=== PATIENT | male | born 1995 | race Caucasian/White ===

== ENCOUNTER 2016-07-10 18:03 | Emergency (ER) | payer OTHER ==
[~2016-07-10] VITALS: Ht 177.8 cm; Wt 66.2 kg
[~2016-07-10 18:03] MED LIST: CYCLOBENZAPRINE5 M2 PO; PREDNISONE20 MG PO
--- NOTE | 2016-07-10 19:55 | ED SKIN/ALLERGY COMPLAINT ---
History of Present Illness General Chief Complaint: Laceration Procedure Stated Complaint: LAC TO CHEEK Source: patient Exam Limitations: no limitations Vital Signs & Intake/Output Vital Signs & Intake/Output Vital Signs Date Time Temp Pulse Resp B/P B/P Pulse O2 O2 Flow FiO2 Mean Ox Delivery Rate 07/10 2045 98.9 70 18 139/81 99 Room Air 07/10 1811 98.9 73 18 145/89 98 Room Air Allergies Coded Allergies: poison bill extract (RASH, ITCHING, SWELLING 07/10/16) Reconcile Medications No Known Home Medications Triage Note: PRESENTS TO ED FOR EVALUATION OF FACIAL LACERATION S/P TRIPPING AND FALLING AGAINST GLASS DOOR. UNSURE OF LAST TETANUS DATE. Triage Nurses Notes Reviewed? yes HPI: This patient is a 20-year-old male who presented to the emergency department for evaluation of laceration status post fall. The patient reported that he tripped and fell into a glass door. He is up-to-date on all of his immunizations. The patient reported some mild aching pain in his right thumb, but no pain in his head or face. The patient denied any loss of consciousness or neck pain. He denied any chest pain or difficulty breathing. No precipitating factors such as dizziness, lightheadedness, nausea, or any other associated symptoms. (TAVARES SILVEIRA PA-C) Past History Travel History Traveled to [place] past 21 day No Medical History Any Pertinent Medical History? see below for history Neurological: NONE EENT: NONE Cardiovascular: NONE Respiratory: NONE Gastrointestinal: NONE Hepatic: NONE Renal: NONE Musculoskeletal: NONE Psychiatric: NONE Endocrine: NONE Blood Disorders: NONE Cancer(s): NONE PATROL INSPECTOR/Reproductive: NONE Surgical History Surgical History: non-contributory Psychosocial History What is your primary language Bahraini Tobacco Use: Never used Family History Hx Contributory? No (TAVARES SILVEIRA PA-C) Review of Systems Review of Systems Constitutional: Reports: no symptoms. EENTM: Reports: no symptoms. Respiratory: Reports: no symptoms. Cardiovascular: Reports: no symptoms. GI: Reports: no symptoms. Genitourinary: Reports: no symptoms. Musculoskeletal: Reports: see HPI. Skin: Reports: see HPI. Neurological/Psychological: Reports: no symptoms. All Other Systems: Reviewed and Negative (TAVARES SILVEIRA PA-C) Physical Exam Physical Exam General Appearance: well developed/nourished, no apparent distress, alert, awake Comments: Well-developed well-nourished person in no acute distress HEENT: Normal EENT exam, head normocephalic, no bony deformities/step-offs of the skull, moist mucous membranes PERRLA bilaterally Nose is atraumatic. Neck: Supple, no lymphadenopathy. No midline tenderness. Full range of motion Back: Normal gait Respiratory: No respiratory distress. Speaking in full sentences Extremity: Normal and equal pulses. No evidence of trauma Neuro: Alert oriented x3, motor sensory normal, cranial nerves II through XII grossly intact. Skin: No appreciable rash on exposed skin, skin is warm and dry. Approximate 1.5 cm in length, subcutaneous, linear laceration to the right cheek with no active bleeding, no surrounding erythema or edema, and no foreign body appreciated in the wound site. Nontender to palpation around the wound site Psych: Mood and affect is normal (TAVARES SILVEIRA PA-C) Progress Differential Diagnosis: abscess/cellulitis, concussion, skin laceration, skin avulsion, skin tear Plan of Care: Four 6-0 sutures were placed over the right zygoma. Stable for discharge home. (TAVARES SILVEIRA PA-C) Departure Departure Disposition: HOME OR SELF CARE Condition: Stable Clinical Impression Primary Impression: Skin laceration Referrals: LOUIS BIANCHI,IVAN Cassidy (PCP/Family) Additional Instructions: Please keep the wound site clean and dry. Keep the wound site covered and apply bacitracin once or twice daily over the next 2 days. After that time, you may keep the wound open to promote better healing, however still keep the wound site clean. Return in 5 days for a wound check and suture removal. Return sooner for any worsening symptoms, fevers, spreading of redness around the wound site, pus drainage from the wound site, excessive pain, or for any other concerns. Departure Forms: Customer Survey General Discharge Information Prescriptions: Current Visit Scripts No Known Home Medications (TAVARES SILVEIRA PA-C) PA/TOW BAR DRIVER Co-Sign Statement Statement: ED Attending supervision documentation- [] I saw and evaluated the patient. I have also reviewed all the pertinent lab results and diagnostic results. I agree with the findings and the plan of care as documented in the PA's/TOW BAR DRIVER's documentation. [X] I have reviewed the ED Record and agree with the PA's/TOW BAR DRIVER's documentation. [] Additions or exceptions (if any) to the PAs/TOW BAR DRIVER's note and plan are summarized below: [] (DESHAUN BIANCHI,MALLORY Cassidy) Procedures Laceration/Wound Repair Laceration/Wound Repair: Wound Location: face Wound's Depth, Shape: linear, subcutaneous Wound Length (cm): 1.5 Wound Explored: irrigated extensively Irrigated w/ Saline (ccs): 500 Betadine Prep? Yes Anesthesia: lidocaine w/ epi Volume Anesthetic (ccs): 2 Wound Repaired With: sutures Suture Size/Type: 6:0 Number of Sutures: 4 Layer Closure? No Sterile Dressing Applied: Yes Splint Applied? No Sling Applied? No Tetanus Status: up to date Progress: Sutures are placed using sterile technique. Patient tolerated the procedure well. (JORDANA MCCALL,TAVARES)
[2016-07-10 20:46] VITALS: BP 139/81
== END 2016-07-10 20:47 ==
LOC: ERH 18:03
DX: S01.411A Laceration without foreign body of right cheek and temporomandibular area, initial encounter (principal); W19.XXXA Unspecified fall, initial encounter; W25.XXXA Contact with sharp glass, initial encounter; Y93.9 Activity, unspecified; Y92.9 Unspecified place or not applicable

== ENCOUNTER 2016-07-16 16:35 | Emergency (ER) | payer OTHER ==
[~2016-07-16] VITALS: Ht 175.3 cm; Wt 66.2 kg
[2016-07-16 16:39] VITALS: BP 134/84
--- NOTE | 2016-07-16 16:57 | ED GENERAL ADULT ---
History of Present Illness General Chief Complaint: Suture Removal/Wound Recheck Stated Complaint: SUTURE REMOVAL Source: patient Exam Limitations: no limitations Vital Signs & Intake/Output Vital Signs & Intake/Output ED Intake and Output 07/17 0000 07/16 1200 Intake Total Output Total Balance Patient 146 lb Weight Weight Reported by Patient Measurement Method Allergies Coded Allergies: poison bill extract (RASH, ITCHING, SWELLING 07/10/16) Reconcile Medications No Known Home Medications Triage Note: PT HERE FOR SUTURE REMOVAL TO THE RIGHT SIDE OF HIS FACE PLACED LAST SATURDAY. Triage Nurses Notes Reviewed? yes Onset: Abrupt Duration: day(s): Timing: recent history HPI: 07/16/16 5 PM 20-year-old male presents to the emergency department complaining of suture removal to the right cheek. The patient states that 5 days ago he tripped and fell and hit his face on a glass door. He says the wound is healing well; he has no complaints. He is requesting suture removal. The onset of the symptoms were abrupt, the duration was 5 days ago, the severity was significant; as his symptoms required him to come to the emergency department for care. Procedure under sterile technique the sutures were removed from the right cheek. There were no complications, bacitracin was applied. He will follow-up as needed Past History Travel History Traveled to [place] past 21 day No Medical History Any Pertinent Medical History? see below for history Neurological: NONE EENT: NONE Cardiovascular: NONE Respiratory: NONE Gastrointestinal: NONE Hepatic: NONE Renal: NONE Musculoskeletal: NONE Psychiatric: NONE Endocrine: NONE Blood Disorders: NONE Cancer(s): NONE LINE OUT MAN/Reproductive: NONE Surgical History Surgical History: non-contributory Psychosocial History What is your primary language U[place]ayan Tobacco Use: Never used ETOH Use: denies use Illicit Drug Use: denies illicit drug use Family History Hx Contributory? No Review of Systems Review of Systems Constitutional: Denies: fever. EENTM: Reports: see HPI. Respiratory: Reports: no symptoms. Cardiovascular: Reports: no symptoms. GI: Reports: no symptoms. Genitourinary: Reports: no symptoms. Musculoskeletal: Reports: no symptoms. Skin: Reports: no symptoms. Neurological/Psychological: Reports: no symptoms. Hematologic/Endocrine: Reports: no symptoms. Physical Exam Physical Exam General Appearance: well developed/nourished, no apparent distress, alert, awake , anxious Head: sutured wound right zygoma Eyes: Bilateral: normal appearance, PERRL, EOMI. Ears, Nose, Throat: normal pharynx, normal ENT inspection Neck: normal inspection, supple, full range of motion Respiratory: no respiratory distress Cardiovascular: regular rate/rhythm Back: normal range of motion Extremities: normal inspection Neurologic/Psych: no motor/sensory deficits, awake, alert, oriented x 3, normal gait Skin: intact, sutured wound right zygoma Core Measures ACS in differential dx? No CVA/TIA Diagnosis: No Severe Sepsis Present: No Septic Shock Present: No Progress Differential Diagnoses I considered the following diagnoses in my evaluation of the patient: [Wound infection, foreign body, wound dehisced since] Plan of Care: Follow-up as needed. Initial ED EKG: none Departure Departure Disposition: HOME OR SELF CARE Condition: Stable Clinical Impression Primary Impression: Visit for suture removal Referrals: LOUIS BIANCHI,IVAN Cassidy (PCP/Family) Departure Forms: Customer Survey General Discharge Information Prescriptions: Current Visit Scripts No Known Home Medications Critical Care Note Critical Care Note Critical Care Time: non-applicable
== END 2016-07-16 16:48 ==
LOC: ERH 16:35
DX: S01.411D Laceration without foreign body of right cheek and temporomandibular area, subsequent encounter (principal)
CPT/HCPCS: 99281